=== PATIENT | male | born 1990 | race Caucasian/White ===

== ENCOUNTER 2019-07-12 07:55 | Emergency (ER) | payer SELFPAY ==
[2019-07-12 08:09] VITALS: BP 124/79
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
== END 2019-07-12 08:45 | disposition home or self-care (01) ==
LOC: UCEAST 07:55
DX: T23.201A Burn of second degree of right hand, unspecified site, initial encounter (principal); T31.0 Burns involving less than 10% of body surface; X15.0XXA Contact with hot stove (kitchen), initial encounter; Y92.9 Unspecified place or not applicable
CPT/HCPCS: 99212; G0463